=== PATIENT | female | born 2000 | race Caucasian/White ===

== ENCOUNTER 2021-04-19 21:12 | Emergency (ER) | payer OTHER ==
[2021-04-19 21:23] VITALS: BP 144/85; PULSE 81; TEMP 98; BMI 20.9
[2021-04-19 23:29] LABS: EPI CELLS 7 /uL (0-25.1); HYALINE CASTS 1 /uL (0-3.1); PH,URINE >= 9.0 (5.0-8.0); URINE APPEARANCE CLOUDY; URINE BACTERIA 7168 /uL (0-1359); URINE BILIRUBIN NEGATIVE (NEGATIVE); URINE COLOR YELLOW; URINE GLUCOSE (UA) NEGATIVE (NEGATIVE); URINE KETONE NEGATIVE (NEGATIVE); URINE LEUK ESTERASE 2+ (NEGATIVE); URINE NITRITE NEGATIVE (NEGATIVE); URINE PROTEIN 1+ (NEGATIVE); URINE RBC 52 /uL (0-23.9); URINE WBC 1296 /uL (0-25.8)
== END 2021-04-19 23:41 | disposition home or self-care (01) ==
LOC: JERFT 21:12
DX: N30.00 Acute cystitis without hematuria (principal)
CPT/HCPCS: 36415; 81003; 84703; 87086; 87186; 87491; 87591; 99283-25

== ENCOUNTER → 2022-05-31 | Day surgery (SDC) | payer OTHER | END | disposition home or self-care (01) | LOC: JRADUS-SUR 09:58 | PROVIDERS: ATTEND Registered Nurse | PROC: 0H9T3ZX Drainage of Right Breast, Percutaneous Approach, Diagnostic (ICD-10-PCS; principal; 2022-05-31) | DX: D24.1 Benign neoplasm of right breast (principal) | CPT/HCPCS: 19083; 87899; 88305-TC; A4648 ==